=== PATIENT | male | born 1990 | race Caucasian/White ===

== ENCOUNTER 2024-06-18 10:35 | Emergency (ER) | payer MEDICAID ==
[~2024-06-18] VITALS: Ht 180.3 cm; Wt 72.6 kg
[2024-06-18] MEDS ORDERED: OFLOXACIN 0.3% 5 ML BOTTLE OT ONE (11:05)
== END 2024-06-18 11:08 | disposition home or self-care (01) ==
LOC: ED 10:35
DX: H72.92 Unspecified perforation of tympanic membrane, left ear (principal); Z88.0 Allergy status to penicillin